=== PATIENT | male | born 1955 | race African-American/Black ===

== ENCOUNTER 2016-10-18 20:55 | Inpatient (IN) ==
[2016-10-18] MEDS ORDERED: THIAMINE INJ 100 MG, FOLIC ACID INJ 1 MG, MAGNESIUM SULF INJ 2 GM, MULTIVITAMIN INJ 10 ... IV STA (21:17)
--- NOTE | 2016-10-18 21:21 | Emergency Department Note ---
Edu Constantino Brittany, am scribing for, and in the presence of, Brannon Alex MD 21:14. Isai Constantino Charles R, MD, personally performed the services described in this documentation, ascribed by Lacie Sorensen in my presence, and it is both accurate and complete . Arrival - Arrival Chief Complaint: Alcohol Intoxication Stated Complaint: ETOH/SOB ED Nursing Triage Note: Patient to ED via EMS. EMS was called by [facility] because patient was noted to have a breatherlizer result of .35 and c/o SOB. Upon arrival to ED patient is in no distress, c/o "throat pain" and has urinated on hisself. Patient AAOx3 and smells of ETOH. He states he drank 3-4 40 ounce beers. Mode of Arrival: Stretcher Limitations: No Limitations Source: Patient, RN Notes Reviewed - History of Present Illness HPI Narrative: Mr. Carey is a 61 y/o black male presenting to the ED by EMS for further evaluation of Alcohol Intoxication. History is limited secondary to patient's intoxication. ER nurse in room states that [facility] called EMS after having patient perform breathalizer test, noting to have an ETOH level of 0.35, which per [facility] is Alcohol Poisoning limit and they could not take him into custody with a level that high. [facility] also initiated EMS due to patient complaining of SOB. Patient has had 4 40 oz. beers tonight. In room patient states he's wasted. He reports that he has had multiple falls tonight and is noted to have what appears to be dust and bits of wall plaster on the top of his head and atop his left shoulder. He states that he did hit his head during a fall tonight, but cannot remember exactly what he fell onto. No other complaint/pain. Allergies/Adverse Reactions: Allergies Allergy/AdvReac Type Severity Reaction Status Date / Time No Known Allergies Allergy Unverified 10/18/16 21:08 Review of System - Review of System 12 point system: reviewed and no additional remarkable complaints except as stated - Review of System Constitutional: Present: as per HPI. Absent: chills, fever Eyes: Absent: vision change Head/Ears/Nose/Throat: Absent: nasal drainage, sore throat Respiratory: Present: respiratory distress Cardiovascular: Absent: chest pain, palpitations Gastrointestinal: Absent: abdominal pain, nausea, vomiting, diarrhea, constipation Genitourinary male: Absent: urgency, dysuria, frequency Musculoskeletal: Absent: arm pain, back pain, leg pain, neck pain Skin: Absent: rash Neurological: Absent: headache Psychiatric: Absent: anxiety, depression Hematological/Lymphatic: Absent: easy bleeding, easy bruising Medical,Surgical,& Family Hx - Social History Smoking Status: Unknown if ever smoked Frequency of Alcohol Use: Frequently Type of Drug Use: Unknown Exam Vital Signs: Vital Signs Temperature 97.1 F L 10/18/16 20:55 Pulse Rate 68 10/18/16 20:55 Respiratory Rate 13 10/18/16 20:55 Blood Pressure 126/89 10/18/16 20:55 O2 Sat by Pulse Oximetry 98 10/18/16 20:55 - General General appearance: alert, in no apparent distress, appears intoxicated, cachectic (appears emaciated) - Head Head exam: Present: atraumatic, normocephalic. Absent: normal inspection (has plaster/dust on top of his head) - Eye Eye exam: Present: PERRL, EOMI, nystagmus (bilateral eyes) - ENT ENT exam: Present: normal exam, normal oropharynx - Neck Neck exam: Present: normal inspection, full ROM, trachea midline - Chest Chest inspection: Present: normal inspection, symmetric chest wall rise - Respiratory Respiratory exam: Present: rhonchi (bilaterally). Absent: normal lung sounds bilaterally - Cardiovascular Cardiovascular exam: Present: regular rate, normal rhythm, murmur (2/6 murmur, difficult to tell if this is diastolic or systolic). Absent: normal heart sounds - Abdominal Exam Abdominal exam: Present: soft, normal bowel sounds - Extremities Exam Extremities exam: Present: full ROM. Absent: normal inspection (dust/plaster to left shoulder) - Back Exam Back exam: Present: normal inspection - Neurological Exam Neurological exam: Present: alert, oriented X3, CN II-XII intact. Absent: motor sensory deficit - Psychiatric Psychiatric exam: Present: normal affect, normal mood - Skin Skin exam: Present: warm, dry, intact, normal color Course Course Narrative: At 2200 pt fell while attempting to get out of the bed despite the nurse's instructions not to do so. Patient appears to have fell on the right elbow and has a now has a small abrasion. We will perform an XR for further evaluation. Nurse's have assisted him back into bed and have instructed him again to not get up. - Consultations Consultation #1: Dr. Martinez will admit Time: 22:46 Results - Labs CBC & BMP: 10/18/16 21:19 10/18/16 21:19 Lab Results: I have reviewed the patients labs Labs: Laboratory Tests 10/18/16 21:19 WBC 8.4 RBC 4.52 Hgb 14.6 Hct 40.0 L MCV 88.5 MCH 32 MCHC 36.5 H RDW 16.9 Plt Count 301 MPV 8.8 L Neut % (Auto) 42.2 Lymph % (Auto) 49.1 Miner % (Auto) 7.6 Eos % (Auto) 0.2 Baso % (Auto) 0.5 Neut # (Auto) 3.6 Lymph # (Auto) 4.1 H Miner # (Auto) 0.6 Eos # (Auto) 0.0 Baso # (Auto) 0.0 Immature Gran % 0.4 Nucleated RBC % 0.6 Immature Gran # 0.03 Nucleated RBCs # 0.05 Laboratory Tests 10/18/16 21:19 INR 1.0 PT Patient/Control Mix 10.6 Laboratory Tests 10/18/16 21:19 Urine Color Straw Urine Appearance Clear Urine pH 5.0 Ur Specific [place] 1.001 Urine Protein Negative Urine Glucose (UA) Negative Urine Ketones Negative Urine Blood Negative Urine Nitrate Negative Urine Bilirubin Negative Urine Urobilinogen < 2.0 H Urine Leukocytes Negative Laboratory Tests 10/18/16 21:19 Sodium 134 L Potassium 4.4 Chloride 97 L Carbon Dioxide 24 Anion Gap 17.4 H BUN 4 L Creatinine 0.80 GFR Calculation 123 BUN/Creatinine Ratio 5.00 L Glucose 95 Calculated Osmolality 264.2 L Calcium 9.0 Magnesium 1.9 Total Bilirubin 0.60 AST 21 ALT 22 Alkaline Phosphatase 77 Total Protein 7.8 Albumin 3.5 Globulin 4.3 H Albumin/Globulin Ratio 0.8 L Lipase 304.0 Serum Alcohol 402 Laboratory Tests 10/18/16 10/18/16 21:19 21:19 Sodium 134 L Potassium 4.4 Chloride 97 L Carbon Dioxide 24 Anion Gap 17.4 H BUN 4 L Creatinine 0.80 GFR Calculation 123 BUN/Creatinine Ratio 5.00 L Glucose 95 Calculated Osmolality 264.2 L Calcium 9.0 Magnesium 1.9 Total Bilirubin 0.60 AST 21 ALT 22 Alkaline Phosphatase 77 Total Protein 7.8 Albumin 3.5 Globulin 4.3 H Albumin/Globulin Ratio 0.8 L Lipase 304.0 Urine Color Straw Urine Appearance Clear Urine pH 5.0 Ur Specific [place] 1.001 Urine Protein Negative Urine Glucose (UA) Negative Urine Ketones Negative Urine Blood Negative Urine Nitrate Negative Urine Bilirubin Negative Urine Urobilinogen < 2.0 H Urine Leukocytes Negative Critical Care Time Critical Care Time: Yes Total Critical Care Time: 60 Disposition Clinical Impression: Alcoholic intoxication, Unsteady gait, Fall, Alcohol poisoning, Abrasion/ contusion right elbow Case discussed with: patient Disposition: Still a Patient Condition: Guarded Time of Disposition: 22:47
[2016-10-18 21:41] LABS: Basophils % 0.5 % (0.0-0.8); Eosinophils % 0.2 % (0.00-10.9); Hemoglobin 14.6 GM/DL (14.0-18.0); Immature Granulocytes % 0.4 %; Immature Granulocytes Absolute 0.03 #; Lymphocytes # 4.1 10*3/uL (1.4-4.0); Lymphocytes % 49.1 % (21.2-54.2); Mean Corpuscular HGB Conc 36.5 GM/DL (32-36); Mean Corpuscular Hemoglobin 32 PG (27-34); Mean Corpuscular Volume 88.5 FL (87-102); Mean Platelet Volume 8.8 FL (9.6-12.0); Monocytes # 0.6 10*3/uL (0.11-0.8); Monocytes % 7.6 % (1.7-12.7); NRBC # 0.05 10*3/uL; Neutrophils # 3.6 10*3/uL (1.4-7.4); Neutrophils % 42.2 % (38.7-73.9); Platelet Count 301 T/CUMM (130-400); Red Blood Count 4.52 MC/CUMM (3.8-5.5); Red Cell Distribution Width 16.9 % (9.3-17.3); White Blood Count 8.4 T/CUMM (4-12)
[2016-10-18 21:52] LABS: PT Patient Result 10.6 SECS
[2016-10-18 22:19] LABS: Apearance,Urine CLEAR (Clear); Bilirubin,Urine Negative (Negative); Blood, Urine Negative (Negative); Glucose,Urine (UA) Negative (Negative); Ketones,Urine Negative (Negative); Nitrite,Urine Negative (Negative); Protein,Urine Negative; Urine Color Straw (Yellow); Urine Specific Gravity 1.001 (1.001-1.035); Urine Urobilinogen < 2.0 EU/DL (0.2-1.0)
[2016-10-18 22:28] LABS: Albumin 3.5 G/DL (3.4-5.0); Bilirubin,Total 0.6 MG/DL (0.2-1.0); Magnesium 1.9 MG/DL (1.8-2.4); Osmolality,Calculated 264.2 MOS/KG (273-304); Potassium 4.4 MMOL/L (3.5-5.1); Total Protein 7.8 G/DL (6.4-8.3)
[2016-10-18 22:38] LABS: Barbiturates Screen,Urine Negative (Negative); Benzodiazepines Screen,Urine Negative (Negative); Cannabinoid Screen,Urine Negative (Negative); Opiate Screen,Urine Negative (Negative); Phencyclidine Screen,Urine Negative (Negative)
[2016-10-18] MEDS ORDERED: ONDANSETRON 4 MG/2 ML VIAL IV PRN (23:21)
[2016-10-18] MEDS ORDERED: MORPHINE 2 MG/1 ML SYRINGE IV PRN (23:21)
[2016-10-18] MEDS ORDERED: BISACODYL 5 MG TABLET PO PRN (23:21)
[2016-10-18] MEDS ORDERED: ACETAMINOPHEN 325 MG TABLET PO PRN (23:21)
[2016-10-18] MEDS ORDERED: NICOTINE 21 MG/24 HR PATCH TRANSDERM PRN (23:21)
--- NOTE | 2016-10-18 23:26 | Hospitalist History & Physical ---
Assessment and Plan (1) Alcoholic intoxication Status: Acute Current Visit: Yes (2) Alcoholic encephalopathy Status: Acute Current Visit: Yes (3) Fall Status: Acute Current Visit: Yes (4) Smoker Status: Acute Assessment and plan: Plan: Admit for observation, give banana bag, fall precautions Benzodiazepines as needed for alcohol withdrawal/agitation Current Visit: Yes History of Present Illness Chief complaint: Brought in by [facility] due to alcohol intoxication History of present illness: Mr. Carey is a 61 yo black male brought via EMS due to alcohol intoxication. History is limited secondary to patient's intoxication. [facility] called EMS after patient had a breathalyzer test registering apparently 0.35, which per [facility] meets alcohol poisoning criteria, so they would not take him [facility], and instead had EMS take him to the emergency room. Apparently the patient also complained of shortness of breath. Patient reportedly drank four 40 oz. beers tonight. He provides little history but denies hypertension, diabetes, or any home medications. Reports smoking approximately a pack a day, he does not quantify his alcohol consumption. Otherwise he mumbles unintelligibly to questions. He tried to get out of the bed in the emergency room, and fell to the ground. CT brain negative for acute pathology, x-rays negative for acute fracture. I have been asked to admit him for further treatment of his acute intoxication and alcoholic encephalopathy. Home Medications Medication Instructions Recorded Confirmed Type Unable To Obtain [Unable to Obtain] 10/18/16 10/18/16 History Allergies Allergy/AdvReac Type Severity Reaction Status Date / Time No Known Allergies Allergy Unverified 10/18/16 21:08 Medical,Surgical,& Family Hx - Medical History Cardio: No history of: CHF, CAD, Hypertension Endocrine: No history of: Diabetes Mellitus (NIDDM) - Surgical History Surgical History: noncontributory (Unknown surgical history due to poor history from patient) - Family History Family History: noncontributory (Unknown family history due to patient is poor history from alcohol intoxication) - Social History Smoking Status: Current every day smoker Have you smoked in the last 12 months: Yes Time spent discussing smoking cessation with patient: 3 to 10 minutes Frequency of Alcohol Use: Frequently Type of Drug Use: Unknown Marital Status: Unknown Functional capacity: independent ambulation Review of systems: A 12 point review of systems is negative except as specified in the HPI Exam - Constitutional Vitals: Period Temp Pulse Resp BP Sys/Zuniga Pulse Ox Last 24 Hr 97.1 F-97.1 F 66-68 13-13 126-126/89-89 98 Exam: EXAM: CONSTITUTIONAL: Thin, non toxic, NAD HEENT: NC, AT, OP poor dentition, PIYUSH, EOMI CV: RRR no m/g/r RESP: clear B/L, no w/r/r GI: abd soft, NT, ND, +bowel sounds INTEGUMENTARY: no lesions or rash EXTREMITIES: no c/c/e NEURO: no focal deficits PSYCH: Slurred speech, drowsy but arousable due to alcohol intoxication Results - Labs CBC & BMP: 10/18/16 21:19 10/18/16 21:19 Lab Results: I have reviewed the past 24 hour labs - Diagnostic Findings Procedure: Chest x-ray: image reviewed by me, report reviewed by me, CT: image reviewed by me, report reviewed by me, X-ray: image reviewed by me, report reviewed by me
[2016-10-19] MEDS ORDERED: THIAMINE INJ 100 MG, FOLIC ACID INJ 1 MG, MULTIVITAMIN INJ 10 ML in SODIUM CHLORIDE 0.9... IV SCH (01:00)
[2016-10-19 06:33] LABS: Basophils % 0.5 % (0.0-0.8); Eosinophils # 0.1 10*3/uL (0.0-0.87); Eosinophils % 0.9 % (0.00-10.9); Hematocrit 33.7 VOL% (42.0-52.0); Hemoglobin 12.3 GM/DL (14.0-18.0); Immature Granulocytes % 0.4 %; Immature Granulocytes Absolute 0.02 #; Lymphocytes # 2.9 10*3/uL (1.4-4.0); Lymphocytes % 50.9 % (21.2-54.2); Mean Corpuscular HGB Conc 36.5 GM/DL (32-36); Mean Corpuscular Hemoglobin 32 PG (27-34); Mean Corpuscular Volume 87.3 FL (87-102); Mean Platelet Volume 8.7 FL (9.6-12.0); Monocytes # 0.7 10*3/uL (0.11-0.8); Monocytes % 12.5 % (1.7-12.7); NRBC # 0.05 10*3/uL; Neutrophils % 34.8 % (38.7-73.9); Platelet Count 276 T/CUMM (130-400); Red Blood Count 3.86 MC/CUMM (3.8-5.5); Red Cell Distribution Width 16.6 % (9.3-17.3); White Blood Count 5.7 T/CUMM (4-12)
[2016-10-19 07:07] LABS: Band Neutrophils 1 % (0-10); Eosinophils 3 % (0-10); Giant Platelets Few; Hypochromasia 1+; Lymphocytes 44 % (20-55); Platelet Estimate Adequate; Segmented Neutrophils 48 % (50-85); Target Cells Few; Total Cells Counted 100
[2016-10-19 07:15] LABS: Albumin 2.6 G/DL (3.4-5.0); Bilirubin,Total 0.7 MG/DL (0.2-1.0); Osmolality,Calculated 277.3 MOS/KG (273-304); Potassium 3.9 MMOL/L (3.5-5.1); Total Protein 5.9 G/DL (6.4-8.3)
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
--- NOTE | 2016-10-19 09:52 | CT Report ---
CT head/brain wo con INDICATION: Head injury Headache The total DLP is 1607 mGy*cm. COMPARISON: None available Technique: Serial axial tomographic images of the brain were obtained without the use of intravenous contrast. Dose reduction: This CT exam was performed using one or more of the following dose reduction techniques: Automated exposure control, automated adjustment of the mA and/or KV according to patient size, or use of iterative reconstruction technique. Findings: No definite acute displaced left depressed skull fractures are visualized. No definite scalp injury/hematoma is visualized. Mild generalized atrophy is noted with mild prominence of the sulci and cortical volume loss. Periventricular white matter hypodensity changes are noted bilaterally which do not demonstrate mass effect and are nonspecific but favored to represent sequela of chronic microvascular ischemia. There is no evidence of vascular territory infarct or acute intracranial hemorrhage. The adkins-white matter differentiation is generally maintained. There is no hydrocephalus. The basilar cisterns are patent. The visualized paranasal sinuses, mastoid air cells and middle ear cavities are predominantly clear. The included orbits and their contents appear within normal limits. IMPRESSION: No acute intracranial abnormality. Generalized atrophy and findings suggestive of sequela of chronic microvascular ischemia. PROCEDURE INTERPRETED AT [facility] DEPARTMENT OF RADIOLOGY Final Report Signed by: Meño Madden
[2016-10-19] MEDS: PANTOPRAZOLE 40 MG TABLET PO SCH (10:00)
--- NOTE | 2016-10-19 10:56 | Hospitalist Progress Note ---
Assessment and Plan - Time spent with patient Time spent with patient: Less than 30 minutes (1) Alcoholic intoxication Status: Acute Assessment and plan: Continuing IV fluids, multivitamin and thiamine. Will start his diet and increase his activity with plans for discharge later this afternoon. He is encouraged follow-up with primary care physician and seek alcohol rehab. Current Visit: Yes (2) Alcoholic encephalopathy Status: Resolved Assessment and plan: Patient is now awake alert and oriented. We will plan to discharge later this afternoon. Current Visit: Yes Hospitalist: Subjective Interval history: Patient examined and chart reviewed. This morning he is awake alert and oriented has no complaints of pain. He states he did drink heavily last evening. He has no interest in alcohol rehab. Exam - Constitutional Vitals: Period Temp Pulse Resp BP Sys/Zuniga Pulse Ox Last 24 Hr 96.6 F-97.2 F 58-68 13-23 90-126/58-89 98-99 General appearance: no acute distress - Head Head exam: Present: normocephalic, atraumatic - Eye Eye exam: Present: EOMI Pupils: Present: PIYUSH - ENT ENT exam: Present: normal exam - Neck Neck exam: Present: normal inspection - Respiratory Respiratory exam: Present: clear to auscultation bilaterally - Cardiovascular Cardiovascular exam: Present: regular rate and rhythm - GI/Abdominal GI/Abdominal exam: Present: normal bowel sounds, soft. Absent: mass, tenderness - Extremities Exam Extremities exam: Absent: calf tenderness, edema - Back Exam Back exam: Present: normal inspection - Neurological Exam Neurological exam: Present: alert, oriented X3, CN II-XII intact. Absent: motor sensory deficit - Psychiatric Psychiatric exam: Present: normal affect, normal mood. Absent: agitated, anxious - Skin Skin exam: Present: warm, dry. Absent: erythema, rash Results - Labs CBC & BMP: 10/19/16 06:04 10/19/16 06:04 Lab Results: I have reviewed the past 24 hour labs - Diagnostic Findings Procedure: Chest x-ray: report reviewed by me, CT: report reviewed by me, X-ray : report reviewed by me Quality Measures - Stroke Symptom Onset Unknown: No
--- NOTE | 2016-10-19 14:28 | Discharge Summary ---
Hospital Course - Hospital Course Hospital Course: 61 yo BM admitted with alcohol intoxication and confusion. He had CT Head and cspine without acute changes. He was hydrated, received thiamine and MVI, and slept well. On 10/19/16, he was awake without complaints of cp, sob, abd pain, n/v , d/c, extremity pain, VELAZQUEZ. He tolerated his diet, was hemodynamically stable and was ready for DC. He had no desire to pursue alcohol rehab. - Time spent with patient Time with patient DS: Less than 30 minutes Diagnosis - Discharge Diagnosis (1) Alcoholic intoxication Status: Acute (2) Alcoholic encephalopathy Status: Resolved Discharge Plan - Discharge Data Disposition: Disch To Home/Self Care Condition at Discharge: Stable Discharge Diet: advance to your usual diet Activity: resume usual activities as tolerated Hygiene: no restrictions Weight Bearing at Discharge: full weight bearing - Discharge Medications No Action Unable To Obtain [Unable to Obtain] - Follow Up or Referral Follow Up: PCP, Clinic [Other] - 5 Days - Forms/Instructions Additional Discharge Instructions: Refer to AA Exam - Constitutional Vitals: Period Temp Pulse Resp BP Sys/Zuniga Pulse Ox Last 24 Hr 96.6 F-98.8 F 58-68 13-23 90-126/58-89 98-99 General appearance: no acute distress - Head Head exam: Present: normocephalic, atraumatic - Eye Eye exam: Present: EOMI Pupils: Present: PIYUSH - ENT ENT exam: Present: normal exam - Neck Neck exam: Present: normal inspection - Respiratory Respiratory exam: Present: clear to auscultation bilaterally - Cardiovascular Cardiovascular exam: Present: regular rate and rhythm - GI/Abdominal GI/Abdominal exam: Present: normal bowel sounds, soft (/), other (NT without mass) - Extremities Exam Extremities exam: Present: normal capillary refill, full ROM, other (No CCE) - Back Exam Back exam: Present: normal inspection - Neurological Exam Neurological exam: Present: alert, oriented X3, CN II-XII intact, other (No focal motor deficits) - Psychiatric Psychiatric exam: Present: normal affect, normal mood - Skin Skin exam: Present: warm, dry Discharge Results Procedures and tests throughout hospitalization: Pending Orders 10/18/16 21:19 XR chest 1V portable Stat 10/18/16 22:04 XR elbow 3V RT Stat Labs on day of discharge: Labs from last 24 hours 10/19/16 10/19/16 10/19/16 06:04 06:04 00:38 WBC 5.7 D RBC 3.86 Hgb 12.3 L D Hct 33.7 L MCV 87.3 MCH 32 MCHC 36.5 H RDW 16.6 Plt Count 276 MPV 8.7 L Neut % (Auto) 34.8 L Lymph % (Auto) 50.9 [place] % (Auto) 12.5 Eos % (Auto) 0.9 Baso % (Auto) 0.5 Neut # (Auto) 2.0 Lymph # (Auto) 2.9 [place] # (Auto) 0.7 Eos # (Auto) 0.1 Baso # (Auto) 0.0 Total Counted 100 Immature Gran % 0.4 Nucleated RBC % 0.9 Immature Gran # 0.02 Segmented Neutrophils 48 L Band Neutrophils 1 Lymphocytes 44 Monocytes 4 Eosinophils 3 Nucleated RBCs # 0.05 Platelet Estimate Adequate Giant Platelets Few Hypochromasia 1+ Target Cells Few INR PT Patient/Control Mix Sodium 141 Potassium 3.9 Chloride 108 H Carbon Dioxide 24 Anion Gap 12.9 BUN 4 L Creatinine 0.70 GFR Calculation 123 BUN/Creatinine Ratio 5.00 L Glucose 94 POC Glucose 73 L Calculated Osmolality 277.3 Calcium 8.0 L Magnesium Total Bilirubin 0.70 AST 18 ALT 15 L Alkaline Phosphatase 58 Total Protein 5.9 L Albumin 2.6 L Globulin 3.3 Albumin/Globulin Ratio 0.7 L Lipase Urine Color Urine Appearance Urine pH Ur Specific [place] Urine Protein Urine Glucose (UA) Urine Ketones Urine Blood Urine Nitrate Urine Bilirubin Urine Urobilinogen Urine Leukocytes Ur Culture Indicated? Urine Opiates Screen Ur Barbiturates Screen Ur Phencyclidine Scrn U Amphetamine/Methamph U Benzodiazepines Scrn U Cocaine Metab Screen U Cannabinoids Screen Serum Alcohol 10/18/16 10/18/16 10/18/16 21:19 21:19 21:19 WBC RBC Hgb Hct MCV MCH MCHC RDW Plt Count MPV Neut % (Auto) Lymph % (Auto) [place] % (Auto) Eos % (Auto) Baso % (Auto) Neut # (Auto) Lymph # (Auto) [place] # (Auto) Eos # (Auto) Baso # (Auto) Total Counted Immature Gran % Nucleated RBC % Immature Gran # Segmented Neutrophils Band Neutrophils Lymphocytes Monocytes Eosinophils Nucleated RBCs # Platelet Estimate Giant Platelets Hypochromasia Target Cells INR PT Patient/Control Mix Sodium 134 L Potassium 4.4 Chloride 97 L Carbon Dioxide 24 Anion Gap 17.4 H BUN 4 L Creatinine 0.80 GFR Calculation 123 BUN/Creatinine Ratio 5.00 L Glucose 95 POC Glucose Calculated Osmolality 264.2 L Calcium 9.0 Magnesium 1.9 Total Bilirubin 0.60 AST 21 ALT 22 Alkaline Phosphatase 77 Total Protein 7.8 Albumin 3.5 Globulin 4.3 H Albumin/Globulin Ratio 0.8 L Lipase 304.0 Urine Color Straw Urine Appearance Clear Urine pH 5.0 Ur Specific [place] 1.001 Urine Protein Negative Urine Glucose (UA) Negative Urine Ketones Negative Urine Blood Negative Urine Nitrate Negative Urine Bilirubin Negative Urine Urobilinogen < 2.0 H Urine Leukocytes Negative Ur Culture Indicated? Not indicated Urine Opiates Screen Negative Ur Barbiturates Screen Negative Ur Phencyclidine Scrn Negative U Amphetamine/Methamph Negative U Benzodiazepines Scrn Negative U Cocaine Metab Screen Negative U Cannabinoids Screen Negative Serum Alcohol 402 10/18/16 10/18/16 21:19 21:19 WBC 8.4 RBC 4.52 Hgb 14.6 Hct 40.0 L MCV 88.5 MCH 32 MCHC 36.5 H RDW 16.9 Plt Count 301 MPV 8.8 L Neut % (Auto) 42.2 Lymph % (Auto) 49.1 [place] % (Auto) 7.6 Eos % (Auto) 0.2 Baso % (Auto) 0.5 Neut # (Auto) 3.6 Lymph # (Auto) 4.1 H [place] # (Auto) 0.6 Eos # (Auto) 0.0 Baso # (Auto) 0.0 Total Counted Immature Gran % 0.4 Nucleated RBC % 0.6 Immature Gran # 0.03 Segmented Neutrophils Band Neutrophils Lymphocytes Monocytes Eosinophils Nucleated RBCs # 0.05 Platelet Estimate Giant Platelets Hypochromasia Target Cells INR 1.0 PT Patient/Control Mix 10.6 Sodium Potassium Chloride Carbon Dioxide Anion Gap BUN Creatinine GFR Calculation BUN/Creatinine Ratio Glucose POC Glucose Calculated Osmolality Calcium Magnesium Total Bilirubin AST ALT Alkaline Phosphatase Total Protein Albumin Globulin Albumin/Globulin Ratio Lipase Urine Color Urine Appearance Urine pH Ur Specific [place] Urine Protein Urine Glucose (UA) Urine Ketones Urine Blood Urine Nitrate Urine Bilirubin Urine Urobilinogen Urine Leukocytes Ur Culture Indicated? Urine Opiates Screen Ur Barbiturates Screen Ur Phencyclidine Scrn U Amphetamine/Methamph U Benzodiazepines Scrn U Cocaine Metab Screen U Cannabinoids Screen Serum Alcohol - Imaging and Cardiology Procedure: Chest x-ray: report reviewed by me, CT: report reviewed by me, X-ray : report reviewed by me DS: Provider Date of admission: 10/18/16 23:21 Primary care physician: . No PCP Attending physician on admission: Miguel Martinez DO Discharging clinician: Sravanthi Benz Expected date of discharge: 10/19/16
--- NOTE | 2016-10-19 16:13 | XRay Report ---
XR elbow 3V RT Clinical Information: Fall, abrasion, Pain Comparison: None Findings: Elbow joint appears intact. There is no evidence of acute fracture or dislocation. There is no joint effusion. No definite focal osseous or soft tissue lesion is identified. Impression: No acute findings. PROCEDURE INTERPRETED AT [facility] DEPARTMENT OF RADIOLOGY Final Report Signed by: Meño Madden
--- NOTE | 2016-10-19 16:22 | XRay Report ---
Exam: XR chest 1V portable Indication: Shortness of breath Comparison study: 01/18/2011 Findings: Lungs are hyperexpanded with diffuse interstitial scarring changes which appear similar prior. Patchy right basilar airspace opacities seen previously have resolved. However, there are patchy right middle lobe opacities which are nonspecific. There is no pneumothorax. Lucent lesion measuring 4.2 cm in the right lung apex may represent a prominent emphysematous bleb but is otherwise indeterminate. Impression: Suggestion of patchy opacities within the right middle and/or lower lobes may represent infectious/inflammatory infiltrate superimposed on chronic interstitial scarring changes. Lucent lesion measuring 4.2 cm and the right apex may represent an emphysematous bleb. A cavitary lesion is not excluded. A follow-up chest radiograph after appropriate therapy is recommended to document stability/resolution. Alternatively, consider CT imaging of the chest for further evaluation if clinically indicated. PROCEDURE INTERPRETED AT [facility] DEPARTMENT OF RADIOLOGY Final Report Signed by: Meño Madden
[2016-10-19] MEDS: SODIUM CHLORIDE 0.45% 1,000 ML IV SCH (17:38)
--- NOTE | 2016-10-19 17:45 | CT Report ---
CT chest w con Technique: Axial CT imaging of the chest was performed following administration of 100 cc of Omnipaque 350. No immediate complication from administration of contrast. Coronal and sagittal reformatted images were additionally created and submitted for review. Dose reduction: This CT exam was performed using one or more of the following dose reduction techniques: Automated exposure control, automated adjustment of the mA and/or KV according to patient size, or use of iterative reconstruction technique. Total DLP: 144.6 mGy*cm Clinical history: Possible cavitary lesion right upper lobe Comparison: Chest radiograph dated same day and cross-sectional imaging available for comparison Findings: CHEST: Mediastinum/vessels/lymph nodes: Heart and great vessels appear unremarkable. There is no evidence of pericardial effusion. The aorta and pulmonary vessels appear widely patent. Several mildly prominent but not significantly enlarged mediastinal lymph nodes are noted, which may be reactive. There is no axillary or subclavicular adenopathy. Partially calcified right hilar lymph node may represent evidence of prior granulomatous disease. Lungs: In the right lung apex, there is a thick-walled cystic/cavitary lesion measuring up to 4.4 cm maximum craniocaudal dimension. In the axial plane, this lesion measures approximately 3.6 x 2.7 cm with central septation suggested. This extends toward the right upper lobe bronchi and contacts the pleura posteriorly. On axial image 39, there is separate suggestion of soft tissue filling a small subsegmental bronchus, which is of uncertain significance but may represent a neoplastic or infectious process versus polyp. Central airways are otherwise patent. Minimal bronchiectasis and interlobular lobular septal thickening changes are noted within the right lung base. There are also punctate areas of ground glass opacity within the lingula and periphery of the left lower lobe which are nonspecific but may represent endobronchial spread of infection. There is no pneumothorax. There is no significant pleural effusion. Minimal emphysematous changes are otherwise identified. Thyroid: Thyroid gland appears within normal limits. No acute abnormality is identified within the visualized upper abdomen. Multiple calcific densities are noted within the pancreatic parenchyma with central ductal dilatation, compatible with findings of chronic pancreatitis. BONES: No acute or suspicious appearing osseous abnormalities are identified. Impression: Thick-walled cavitary lesion with central septations in the right lung apex. This is nonspecific but an infectious process is favored. Tuberculosis type infection is not excluded. Neoplasm is also not excluded but considered less likely. Punctate ground glass opacities in the lingula and left lung base may represent endobronchial spread of infection. Findings compatible with changes of chronic pancreatitis partially imaged in the upper abdomen. Critical findings discussed with the charge nurse, Nevaeh Robles RN, via telephone at 5:30 PM on the day of examination. PROCEDURE INTERPRETED AT [facility] DEPARTMENT OF RADIOLOGY Final Report Signed by: Meño Madden
[2016-10-19] MEDS ORDERED: LORazepam 2 MG/1 ML VIAL IV PRN (17:49)
--- NOTE | 2016-10-19 18:13 | Event Note ---
CT Chest noted cavitary lung lesion. Will transfer to negative pressure room, consult pulmonary, apply PPD, and attempt to collect sputums for appropriate studies.
[2016-10-19] MEDS ORDERED: TUBERCULIN SKIN TEST 0.1 ML SYRINGE INTRADERM ONE (18:45)
[2016-10-19] MEDS: CLORAZEPATE 3.75 MG TABLET PO SCH (20:56)
--- NOTE | 2016-10-20 07:25 | Pulmonology Consult Note ---
History of Present Illness Chief complaint: Abnormal chest x-ray. Alcoholic. History of present illness: Mr. Carey is a 61 year old male whom I been asked to see in pulmonary consultation. This patient is an alcoholic. He was hospitalized here and was ready for discharge, but before the time of discharge he was noted that his chest x-ray was abnormal. Pulmonary tuberculosis was thought to be a possibility. I have interviewed this patient. He is not interested in given a good review of systems. He does admit to occasional cough. I cannot get a history of chest pain or reflux. His review of systems is otherwise negative because it is unreliable. Allergies. None Home medicines. See below Hospital medicines. See below. Past history. Smoker. Alcoholic. Family history. Noncontributory because the patient will not give an adequate history. Social history. Smokes daily. Uses alcohol frequently. I have reviewed the patient's chest x-ray and CT scan of the chest. He has a septated slightly thick wall cavity with no air-fluid levels in the apex of the right lung. He also has an infiltrate versus a cavity in the distal lingula. There is also an infiltrate with a cavity containing no air-fluid levels at the base of the right lung. He has underlying emphysema. Microbiology. No results. Lab. Electrolytes are normal. Glucoses are normal. Liver function tests are normal. Protein and albumin are low with normal globulin. H&H is 12.3/33.7. MCH is increased and red blood cell distribution width is increased. Platelets are 276,000. White count is 5751 612-1/2 lymphocytes. Toxicology showed a serum alcohol level of 402. Physical exam. Vital signs. See below. Patient's had a single temperature to 99. Psychiatric. Arousable. Cooperative. Neurologic. Cranial nerves are intact. Patient moves all 4 extremities. I did not see any definite asterixis. Face. Lips and tongue are normal. Neck. No meningismus. No masses. Thyroid was not palpated. Lymphatics. No submandibular cervical supraclavicular or epitrochlear adenopathy. Chest. Mild large airway congestion with hyperinflation and prolonged incomplete expiration Heart. No gallop. Abdomen. Nontender. Bowel sounds are present Lower extremities. No obvious evidence of deep venous thrombophlebitis. Skin of the face and hand showed no cancerous infectious lesions. No other areas of skin were examined. Venous exam of the neck upper and lower extremities are normal. Arterial exam revealed bilateral decreased carotid artery upstrokes. Upper extremity pulses are palpable lower extremity pulses were nonpalpable no evidence of lower extremity ischemia The remainder the physical exam is negative Impression. 1. Alcoholism 2. Tobacco abuse 3. Septated slightly thick wall cavity at the apex of the right lung. No air- fluid level. Possible cavity associated with infiltrate posterior right lower lung. Infiltrate in the distal lingula. In the face of the patient's alcoholism I suspect that he has had episodes of gastroesophageal reflux and/or vomiting with aspiration. He is a most likely bacterial but I agree with looking for evidence of acid-fast bacilli. 4. Anemia 5. Hypoproteinemia and hypoalbuminemia Plan. 1. I am starting this patient on IV penicillin and IV Levaquin. 2. Will collect sputum for Gram stain culture and sensitivity and sputum for TB. QuantiFERON test is pending. TB skin test is pending and this should be of the same significance as the QuantiFERON test. Both will basically indicate a past history of TB exposure and infection some time in the past. 3. Most likely we are dealing with an alcoholic with recurrent aspiration and bacterial infections.. 4. If we decide to put this patient on anti-TB medicines we can consult the [facility] to oversee this and to follow the patient. Course can be done unless they have lost ther government funding. Home Medications Medication Instructions Recorded Confirmed Type Unable To Obtain [Unable to Obtain] 10/18/16 10/18/16 History Allergies Allergy/AdvReac Type Severity Reaction Status Date / Time No Known Allergies Allergy Unverified 10/18/16 21:08 Exam (Pulmonay) H&P - Constitutional Vitals: Period Temp Pulse Resp BP Sys/Zuniga Pulse Ox Last 24 Hr 98 F-99 F 57-74 14-20 92-141/59-104 99-100 Medical,Surgical,& Family Hx - Medical History Cardio: No history of: CHF, CAD, Hypertension Neurology: No history of: Brain Aneurysm, Cerebral Hemorrhage, Cerebrovascular Accident , Cerebral Palsy, Dementia, Migraine, Multiple Sclerosis, Parkinson's Disease, Peripheral Neuropathy, Seizures, TIA, Vertigo, Neurologocal Cancer Endocrine: No history of: Diabetes Mellitus (NIDDM) - Surgical History Neurologic Surgeries: Patient denies: Brain Aneurysm, Cerebral Hemorrhage - Social History Smoking Status: Current every day smoker Frequency of Alcohol Use: Frequently Type of Drug Use: Unknown Results - Labs CBC & BMP: 10/19/16 06:04 10/19/16 06:04 Quality Measures - Stroke Symptom Onset Unknown: No Specialty Discharge - Follow Up or Referrals Follow up with: PCP, Clinic [Other] - 5 Days
[2016-10-20] MEDS: SODIUM CHLORIDE 0.45% 1,000 ML IV SCH ×2 (08:06→22:30)
[2016-10-20] MEDS: PANTOPRAZOLE 40 MG TABLET PO SCH (08:34)
[2016-10-20] MEDS: CLORAZEPATE 3.75 MG TABLET PO SCH ×3 (08:34→21:15)
[2016-10-20] MEDS: PENICILLIN G POTASSIUM INJ 2,000,000 UNIT in SODIUM CHLORIDE 0.9% 100 ML IV SCH ×3 (08:34→21:15)
[2016-10-20] MEDS: LEVOFLOXACIN INJ 500 MG in PREMIX 1 EACH IV SCH (08:34)
--- NOTE | 2016-10-20 10:16 | Hospitalist Progress Note ---
Assessment and Plan (1) Abnormal screening chest x-ray for tuberculosis Status: Acute Assessment and plan: The patient has chest x-ray with abnormalities in the right apex. Dr. Ochoa believes this is most likely due to aspiration. The patient has TB screening studies sent and he will continue negative pressure until the screening studies have returned a result. Current Visit: Yes Hospitalist: Subjective Interval history: The patient is resting quietly in negative pressure room 105. The patient is not feeling short of breath. Patient is tolerating regular diet. I coordinated care with Dr. Ochoa and with Dr. Preston. Exam - Constitutional Vitals: Period Temp Pulse Resp BP Sys/Zuniga Pulse Ox Last 24 Hr 98 F-99 F 57-74 14-20 92-145/59-104 99-100 Exam: Constitutional System: No distress. No tremulousness. Head: Normocephalic, atraumatic. Ears, Nose and Throat System: No evidence of Otitis or Mastoiditis. No epistaxis or discharge Eyes System: Pupils equal, round, and reactive. Extraocular muscles intact. Neck: Supple, without adenopathy, No jugular venous distention. No thyromegaly , neck mass, or prior surgery apparent. Respiratory System: Chest clear to auscultation. Cardiovascular System: Heart with regular rate and rhythm. No murmur. Results - Labs CBC & BMP: 10/19/16 06:04 10/19/16 06:04 Lab Results: I have reviewed the past 24 hour labs Quality Measures - Stroke Symptom Onset Unknown: No Specialty Discharge - Follow Up or Referrals Follow up with: PCP, Clinic [Other] - 5 Days
[2016-10-21] MEDS: PENICILLIN G POTASSIUM INJ 2,000,000 UNIT in SODIUM CHLORIDE 0.9% 100 ML IV SCH ×4 (05:30→21:39)
[2016-10-21] MEDS: LEVOFLOXACIN INJ 500 MG in PREMIX 1 EACH IV SCH (08:09)
[2016-10-21] MEDS: CLORAZEPATE 3.75 MG TABLET PO SCH ×3 (09:04→21:40)
[2016-10-21] MEDS: PANTOPRAZOLE 40 MG TABLET PO SCH (09:04)
--- NOTE | 2016-10-21 10:39 | Pulmonology Progress Note ---
Pulmonary - PN: Subj Interval history: This is a 61-year-old alcoholic who I saw in pulmonary consultation on 2016. Patient has an abnormal chest x-ray and the request was to rule out pulmonary tuberculosis. My impressions were. 1. Alcoholism 2. Tobacco abuse 3. Septated slightly thick wall cavity at the apex of the right lung. No air- fluid level. Possible cavity associated with infiltrate posterior right lower lung. Infiltrate in the distal lingula. In the face of the patient's alcoholism I suspect that he has had episodes of gastroesophageal reflux and/or vomiting with aspiration. He is a most likely bacterial but I agree with looking for evidence of acid-fast bacilli. 4. Anemia 5. Hypoproteinemia and hypoalbuminemia 10/21/2016. Sputum Gram stain is showing gram-positive cocci and a few gram- negative rods. Patient has less than 25 white blood cells per high-power field. Sputum for TB are pending. TB skin test is been placed and so far is negative. QuantiFERON test is pending. If either 1 of these test are positive and means the patient had a infection for TB sometime in his lifetime. If the tests are negative and probably means she has never had a TB infection but he could have energy secondary to his chronic alcoholism. We will see what his sputum shows. As an alcoholic patient could have multiple episodes of aspiration causing the same chest x-ray changes. He has been stable overnight. Physical exam. Vital signs. See below. Highest temp is been 98.6. Psychiatric. Oriented 3. Not very cooperative. Neurologic. Cranial nerves are intact. Long track motor functions intact. No asterixis. Face. Symmetrical Neck. Symmetrical no meningismus Lymphatics. No submandibular cervical supraclavicular adenopathy Chest. Loose large airway congestion. No chest wall tenderness Heart. No gallop Abdomen nondistended nontender. Positive bowel sounds Extremities. Nothing to suggest deep venous thrombophlebitis The remainder the physical exam is negative Plan. 10/20/2016. 1. I am starting this patient on IV penicillin and IV Levaquin. 2. Will collect sputum for Gram stain culture and sensitivity and sputum for TB. QuantiFERON test is pending. TB skin test is pending and this should be of the same significance as the QuantiFERON test. Both will basically indicate a past history of TB exposure and infection some time in the past. 3. Most likely we are dealing with an alcoholic with recurrent aspiration and bacterial infections.. 4. If we decide to put this patient on anti-TB medicines we can consult the [facility] to oversee this and to follow the patient. Course can be done unless they have lost ther government funding. 10/21/2016. 1. See today's note above. 2. Check sputum's when available 3. Continue antibiotics 4. Follow-up chest x-ray Exam (Progress Note) - Constitutional Vitals: Period Temp Pulse Resp BP Sys/Zuniga Pulse Ox Last 24 Hr 97 F-98.6 F 44-56 13-16 124-152/70-97 98-100 Results - Labs CBC & BMP: 10/19/16 06:04 10/19/16 06:04 Specialty Discharge - Follow Up or Referrals Follow up with: PCP, Clinic [Other] - 5 Days
[2016-10-21] MEDS: SODIUM CHLORIDE 0.45% 1,000 ML IV SCH (11:32)
--- NOTE | 2016-10-21 11:57 | Hospitalist Progress Note ---
Assessment and Plan (1) Abnormal screening chest x-ray for tuberculosis Status: Acute Assessment and plan: The patient has chest x-ray with abnormalities in the right apex. Dr. Ochoa believes this is most likely due to aspiration. The patient has TB screening studies sent and he will continue negative pressure until the screening studies have returned a result. Current Visit: Yes Hospitalist: Subjective Interval history: The patient was admitted to the hospital with acute alcohol intoxication. The patient was found to have abnormal chest x-ray in the apex with question of tuberculosis. There is no evidence of tuberculosis so far on sputum and skin testing. The patient remains in isolation until the electrical controls designer has determined that he is not at risk of communicating tuberculosis. The patient is being treated for aspiration pneumonia. Exam - Constitutional Vitals: Period Temp Pulse Resp BP Sys/Zuniga Pulse Ox Last 24 Hr 97 F-98.6 F 44-56 13-16 124-152/70-97 98-100 Exam: Constitutional System: No distress. No tremulousness. Head: Normocephalic, atraumatic. Ears, Nose and Throat System: No evidence of Otitis or Mastoiditis. No epistaxis or discharge Eyes System: Pupils equal, round, and reactive. Extraocular muscles intact. Neck: Supple, without adenopathy, No jugular venous distention. No thyromegaly , neck mass, or prior surgery apparent. Respiratory System: Chest clear to auscultation. Cardiovascular System: Heart with regular rate and rhythm. No murmur. Results - Labs CBC & BMP: 10/19/16 06:04 10/19/16 06:04 Lab Results: I have reviewed the past 24 hour labs Quality Measures - Stroke Symptom Onset Unknown: No Specialty Discharge - Follow Up or Referrals Follow up with: PCP, Clinic [Other] - 5 Days
[2016-10-22] MEDS: PENICILLIN G POTASSIUM INJ 2,000,000 UNIT in SODIUM CHLORIDE 0.9% 100 ML IV SCH ×4 (02:12→20:19)
[2016-10-22] MEDS: SODIUM CHLORIDE 0.45% 1,000 ML IV SCH ×2 (04:31→20:20)
--- NOTE | 2016-10-22 07:20 | XRay Report ---
Referring Physician: Spencer Herr Exam: XR chest 1V portable Date: October 22, 2016 at 3:00 AM Reason: Cough Comparison: Chest one view portable October 18, 2016, CT chest October 19, 2016 Findings: The cardiac silhouette is upper normal in size. A thick-walled cavitary lesion is again seen within the right lung apex. This could represent an infectious or neoplastic process. There are also minimal scattered opacities within the remaining lungs, mainly at the lung bases. This could represent atelectasis, scarring and/or pneumonia. There is also bronchiectasis at the right lung base. No pneumothorax is identified. The osseous structures appear stable. Impression: There has been no significant change. PROCEDURE INTERPRETED AT [facility] DEPARTMENT OF RADIOLOGY Final Report Signed by: Dr. Ray Saavedra
[2016-10-22] MEDS: LEVOFLOXACIN INJ 500 MG in PREMIX 1 EACH IV SCH (07:57)
--- NOTE | 2016-10-22 08:10 | Hospitalist Progress Note ---
Assessment and Plan (1) Bacterial pneumonia Status: Acute Assessment and plan: Cavitary lesion is likely 2/2 aspiration. TB work-up thus far is negative for evidence of TB infection. GNR isolated on sputum culture. Awaiting finalization of cx results. Continue with Levo and Pen G for now. 3rd sputum for AFB is pending as well as QTB. Obtain HIV screening today. Health Dept. is aware of this patient. Current Visit: Yes (2) Alcoholic intoxication Status: Resolved Assessment and plan: Resolved. Patient is AAO x3. Continue to monitor for withdrawals. No signs nor symptoms of such currently. Current Visit: Yes (3) Abnormal screening chest x-ray for tuberculosis Status: Acute Assessment and plan: As per above. Awaiting 3rd sputum for AFB and QTB. Current Visit: Yes Hospitalist: Subjective Interval history: Patient initially admitted with alcohol intoxication and noted to have a right apical thick walled cavitary lesion. Patient placed in ICU for negative pressure isolation (airborne precautions) to r/o TB. 2/3 Sputum samples for AFB are smear negative. TST with 0mm induration. QTB pending. Patient reports feeling well. No cough nor shortness of breath. No chest pain. Sitting up in bed eating breakfast without difficulty. Currently on Levoflxacin and Pen G. Sputum culture with GNR isolated. Identification and susceptibilities pending. Exam - Constitutional Vitals: Period Temp Pulse Resp BP Sys/Zuniga Pulse Ox Last 24 Hr 97 F-98.6 F 44-78 10-18 113-147/64-86 100-100 General appearance: no acute distress - Head Head exam: Present: normal inspection, normocephalic, atraumatic - Eye Eye exam: Present: EOMI - Neck Neck exam: Present: normal inspection - Respiratory Respiratory exam: Present: other (Course breath sounds bilaterally without wheezes. Occassional rales over the right upper airway) - Cardiovascular Cardiovascular exam: Present: regular rate and rhythm. Absent: JVD, systolic murmur - GI/Abdominal GI/Abdominal exam: Present: normal bowel sounds, soft. Absent: distended, tenderness - Neurological Exam Neurological exam: Present: alert, oriented X3, CN II-XII intact - Psychiatric Psychiatric exam: Present: normal affect, normal mood - Skin Skin exam: Present: normal color, warm, dry Results - Labs CBC & BMP: 10/19/16 06:04 10/19/16 06:04 Quality Measures - Stroke Symptom Onset Unknown: No Specialty Discharge - Follow Up or Referrals Follow up with: PCP, Clinic [Other] - 5 Days
[2016-10-22] MEDS: CLORAZEPATE 3.75 MG TABLET PO SCH ×3 (08:58→20:19)
[2016-10-22] MEDS: PANTOPRAZOLE 40 MG TABLET PO SCH (08:58)
--- NOTE | 2016-10-22 09:34 | Physician Query Form ---
CLICK EDIT DOCUMENT TO SELECT QUERY ANSWER --> OK --> SIGN Irene Tejada RN Clinical Conveyor Mechanic W) [phone] (f) [phone] [email or web address]: Make your selection(s) from the choices in EACH section by typing an "x" and enter comments in the comment section. Please use your independent medical judgment in providing your response. This request does not imply that any particular answer is desired or expected. CLINICAL INDICATORS: (Providers should not edit this section) Height: 6ft 2in Weight: 124 lbs History Faculty Member BMI: 15.9 Nutritional supplements: Breeze with all meals Bait Man notes: Loss of subcutaneous fat. Loss of lean body mass. Loss of muscle mass Other clinical notes: cachectic (appears emaciated) Based on the above, which following choice most accurately represents the patient's nutritional status? (x) Malnutrition ( ) mild ( ) moderate (x) severe ( ) Protein calorie malnutrition ( ) mild ( ) moderate ( ) severe ( ) Emaciation due to malnutrition ( ) Nutritional marasmus ( ) Cachexia ( ) Underweight ( ) No nutritional deficiency ( ) Other, please specify: ( ) Clinically unable to determine Mild Malnutrition (BMI < 18.5, % Normal Body Weight 85-95%) Moderate Malnutrition (BMI < 17, % Normal Body Weight 75-85%) Severe Malnutrition (BMI < 16, % Normal Body Weight < 75%) Source: Marva COMMENTS: PLEASE ALSO DOCUMENT RESPONSE IN PROGRESS NOTES AND/OR DISCHARGE SUMMARY Use of terms such as suspected, likely, or probable (associated with a specific diagnosis that is being evaluated, monitored, or treated as if it exists) are acceptable and can be restated in the discharge summary if not ruled out. MTDD
[2016-10-22 10:02] LABS: HIV Antigen/Antibody Result Nonreactive (Nonreactive)
--- NOTE | 2016-10-22 10:50 | Pulmonology Progress Note ---
Pulmonary - PN: Subj Interval history: This is a 61-year-old alcoholic who I saw in pulmonary consultation on 2016. Patient has an abnormal chest x-ray and the request was to rule out pulmonary tuberculosis. My impressions were. 1. Alcoholism 2. Tobacco abuse 3. Septated slightly thick wall cavity at the apex of the right lung. No air- fluid level. Possible cavity associated with infiltrate posterior right lower lung. Infiltrate in the distal lingula. In the face of the patient's alcoholism I suspect that he has had episodes of gastroesophageal reflux and/or vomiting with aspiration. He is a most likely bacterial but I agree with looking for evidence of acid-fast bacilli. 4. Anemia 5. Hypoproteinemia and hypoalbuminemia 10/21/2016. Sputum Gram stain is showing gram-positive cocci and a few gram- negative rods. Patient has less than 25 white blood cells per high-power field. Sputum for TB are pending. TB skin test is been placed and so far is negative. QuantiFERON test is pending. If either 1 of these test are positive and means the patient had a infection for TB sometime in his lifetime. If the tests are negative and probably means she has never had a TB infection but he could have energy secondary to his chronic alcoholism. We will see what his sputum shows. As an alcoholic patient could have multiple episodes of aspiration causing the same chest x-ray changes. He has been stable overnight. 10/22/2016. Patient's chest x-ray is pending. Final TB skin test is yet to be read. QuantiFERON has not been reported sputum's are growing a Proteus mirabilis. This is sensitive to Levaquin which the patient's own. Continue his IV penicillin since I suspect this patient aspirates with his frequent inebriation. So far no sputum's are positive for TB. I am reluctant to put the patient on TB medicines, several of which are liver toxic, in the face of his alcoholism unless we have some evidence of active disease. I agree with isolation at the present time. So far his sputum is all been negative for acid- fast bacilli. He does have several infiltrates and I suggest in order to be more definitive in this situation we proceed with fiberoptic bronchoscopy at the bedside in isolation on Friday in order to get the best specimens possible. Physical exam. Vital signs. See below. Highest temp is been 98.6. Psychiatric. Oriented 3. Not very cooperative. Neurologic. Cranial nerves are intact. Long track motor functions intact. No asterixis. Face. Symmetrical Neck. Symmetrical no meningismus Lymphatics. No submandibular cervical supraclavicular adenopathy Chest. Loose large airway congestion. No chest wall tenderness Heart. No gallop Abdomen nondistended nontender. Positive bowel sounds Extremities. Nothing to suggest deep venous thrombophlebitis The remainder the physical exam is negative Plan. 10/20/2016. 1. I am starting this patient on IV penicillin and IV Levaquin. 2. Will collect sputum for Gram stain culture and sensitivity and sputum for TB. QuantiFERON test is pending. TB skin test is pending and this should be of the same significance as the QuantiFERON test. Both will basically indicate a past history of TB exposure and infection some time in the past. 3. Most likely we are dealing with an alcoholic with recurrent aspiration and bacterial infections.. 4. If we decide to put this patient on anti-TB medicines we can consult the [facility] to oversee this and to follow the patient. Course can be done unless they have lost ther [facility] funding. 10/21/2016. 1. See today's note above. 2. Check sputum's when available 3. Continue antibiotics 4. Follow-up chest x-ray 10/22/2016. 1. See today's note above. 2. Continue present antibiotics 3. Fiberoptic bronchoscopy in the morning Exam (Progress Note) - Constitutional Vitals: Period Temp Pulse Resp BP Sys/Zuniga Pulse Ox Last 24 Hr 97 F-98.6 F 44-78 10-20 104-147/64-86 100-100 Results - Labs CBC & BMP: 10/19/16 06:04 10/19/16 06:04 Specialty Discharge - Follow Up or Referrals Follow up with: PCP, Clinic [Other] - 5 Days
[2016-10-22 19:05] LABS: TB Ag minue Nil Result -0.02 IU/mL
[2016-10-23] MEDS: PENICILLIN G POTASSIUM INJ 2,000,000 UNIT in SODIUM CHLORIDE 0.9% 100 ML IV SCH ×3 (03:20→15:25)
[2016-10-23 05:36] LABS: Basophils # 0.1 10*3/uL (0.0-0.2); Basophils % 0.6 % (0.0-0.8); Eosinophils # 0.2 10*3/uL (0.0-0.87); Eosinophils % 1.8 % (0.00-10.9); Hematocrit 35.8 VOL% (42.0-52.0); Hemoglobin 13.1 GM/DL (14.0-18.0); Immature Granulocytes % 0.2 %; Immature Granulocytes Absolute 0.02 #; Lymphocytes # 2.9 10*3/uL (1.4-4.0); Mean Corpuscular HGB Conc 36.6 GM/DL (32-36); Mean Corpuscular Hemoglobin 33 PG (27-34); Mean Corpuscular Volume 89.1 FL (87-102); Mean Platelet Volume 9.1 FL (9.6-12.0); Monocytes # 1.2 10*3/uL (0.11-0.8); NRBC # 0.21 10*3/uL; Neutrophils # 3.8 10*3/uL (1.4-7.4); Neutrophils % 46.4 % (38.7-73.9); Platelet Count 311 T/CUMM (130-400); Red Blood Count 4.02 MC/CUMM (3.8-5.5); Red Cell Distribution Width 16.7 % (9.3-17.3); White Blood Count 8.1 T/CUMM (4-12)
[2016-10-23 05:40] LABS: INR 1.1; PT Patient Result 11.7 SECS; Partial Thromboplastin Time 29.3 SECS (0-40)
[2016-10-23] MEDS ORDERED: BENZONATATE 100 MG CAPSULE PO ONE (07:00)
[2016-10-23] MEDS ORDERED: diphenhydrAMINE 50 MG/1 ML VIAL IM ONE (07:00)
[2016-10-23] MEDS ORDERED: MEPERIDINE 50 MG/1 ML VIAL IM ONE (07:00)
[2016-10-23] MEDS ORDERED: LIDOCAINE 2% VISCOUS 100 ML BOTTLE SWISH/SPIT ONE (07:30)
[2016-10-23] MEDS ORDERED: LIDOCAINE 4% TOP SOLN 50 ML BOTTLE RESP TX ONE (07:30)
[2016-10-23] MEDS ORDERED: LIDOCAINE 1% 20 ML VIAL MISC INJ ONE (07:30)
[2016-10-23] MEDS: LEVOFLOXACIN INJ 500 MG in PREMIX 1 EACH IV SCH (07:55)
--- NOTE | 2016-10-23 08:57 | Event Note ---
In hospital diagnostic fiberoptic bronchoscopy. Lavages from the right upper lung, right lower lung, lingula of the left upper lung. Specimens were sent for Gram stain, bacterial cultures, AFB stains and cultures. The 61-year-old black male alcoholic who has an abnormal chest x-ray with cystic areas in the right upper lung left upper lung and infiltrate in the right lower lung and an infiltrate in the lingula. His studies have been negative for TB but there is a question of tuberculosis based on his chest x- ray appearance. He is at increased risk for tuberculosis because of his alcoholism. For this reason he is evaluated with fiberoptic bronchoscopy. The vocal cords were normal the trachea was normal and the martha was sharp The patient had retained secretions in the right mainstem bronchus the right upper lung and the right lower lung. These areas were lavaged until clear. Patient has scattered areas of minor erosive friable bronchitis and he had mild to moderate collapsibility of his large and small airways. I did not see any endobronchial lesions to suggest cancer. The left mainstem bronchus contained secretions. There were a lot of secretions in the left upper lung especially in the lingula. The lingula was erythematous and edematous and slightly friable. This area was lavaged until clear. There were also secretions in the left lower lung which were removed with lavage and suctioning. There was underlying mild to moderate collapsibility of large and small airways compatible with an element of COPD. Patient tolerated procedure well there were no complications Impression. 1. History of tobacco abuse 2. Sputum is positive for Proteus 3. Thick and thin wall cystic areas in both upper lungs and an infiltrate in the lingula and in the right lower lung suspicious for granulomatous disease. 4. See above 5. Probable underlying COPD Plan. 1. Check bronchoscopy specimens. 2. As a precaution I would keep this patient in isolation until we see his bronchoscopy stains for AFB are negative.
--- NOTE | 2016-10-23 08:58 | Hospitalist Progress Note ---
Assessment and Plan (1) Bacterial pneumonia Status: Acute Assessment and plan: Cavitary lesion is likely 2/2 aspiration. TB work-up thus far is negative for evidence of TB infection. GNR isolated on sputum culture. Awaiting finalization of cx results. Continue with Levo and Pen G for now. 3rd sputum for AFB is pending as well as QTB. Obtain HIV screening today. Health Dept. is aware of this patient. 10/23/16: Remains clinically stable. Proteus isolated on sputum cx. On Levo and Pen G. Will continue both for now and likely d/c Pen G with final cx data. Plans are for patient to undergo bronch today. Will transfer to the floor post- procedure. Current Visit: Yes (2) Alcoholic intoxication Status: Resolved Assessment and plan: Resolved. Patient is AAO x3. Continue to monitor for withdrawals. No signs nor symptoms of such currently. Current Visit: Yes (3) Abnormal screening chest x-ray for tuberculosis Status: Acute Assessment and plan: As per above. Awaiting 3rd sputum for AFB and QTB. Current Visit: Yes Hospitalist: Subjective Interval history: Mr. Carey was initially admitted with alcohol intoxication and noted to have a right apical thick walled cavitary lesion. He was placed in ICU for negative pressure isolation (airborne precautions) to r/o TB. 3/3 Sputum samples for AFB are smear negative. TST with 0mm induration. QTB pending. Patient is resting well this morning. No cough nor shortness of breath. No chest pain. Sitting up in bed eating breakfast without difficulty. Currently on Levoflxacin and Pen G. Sputum culture with Proteus isolated and is susceptible to Levo. Plans for Bronch this morning and transfer to the floor. Exam - Constitutional Vitals: Period Temp Pulse Resp BP Sys/Zuniga Pulse Ox Last 24 Hr 97.1 F-98.0 F 54-86 10-20 106-139/65-76 97-100 General appearance: under weight - Head Head exam: Present: normal inspection, normocephalic, atraumatic - Eye Eye exam: Present: EOMI - Respiratory Respiratory exam: Present: rales - Cardiovascular Cardiovascular exam: Present: regular rate and rhythm - GI/Abdominal GI/Abdominal exam: Present: normal bowel sounds, soft. Absent: distended, tenderness - Neurological Exam Neurological exam: Present: alert, oriented X3 - Psychiatric Psychiatric exam: Present: normal affect, normal mood - Skin Skin exam: Present: normal color, warm Results - Labs CBC & BMP: 10/23/16 05:13 10/19/16 06:04 Quality Measures - Stroke Symptom Onset Unknown: No Specialty Discharge - Follow Up or Referrals Follow up with: PCP, Clinic [Other] - 5 Days
[2016-10-23] MEDS: CLORAZEPATE 3.75 MG TABLET PO SCH ×2 (09:45→15:26)
[2016-10-23] MEDS: PANTOPRAZOLE 40 MG TABLET PO SCH (09:45)
[2016-10-23] MEDS: SODIUM CHLORIDE 0.45% 1,000 ML IV SCH (09:49)
--- NOTE | 2016-10-23 10:26 | Pulmonology Progress Note ---
Pulmonary - PN: Subj Interval history: This is a 61-year-old alcoholic who I saw in pulmonary consultation on 2016. Patient has an abnormal chest x-ray and the request was to rule out pulmonary tuberculosis. My impressions were. 1. Alcoholism 2. Tobacco abuse 3. Septated slightly thick wall cavity at the apex of the right lung. No air- fluid level. Possible cavity associated with infiltrate posterior right lower lung. Infiltrate in the distal lingula. In the face of the patient's alcoholism I suspect that he has had episodes of gastroesophageal reflux and/or vomiting with aspiration. He is a most likely bacterial but I agree with looking for evidence of acid-fast bacilli. 4. Anemia 5. Hypoproteinemia and hypoalbuminemia 10/21/2016. Sputum Gram stain is showing gram-positive cocci and a few gram- negative rods. Patient has less than 25 white blood cells per high-power field. Sputum for TB are pending. TB skin test is been placed and so far is negative. QuantiFERON test is pending. If either 1 of these test are positive and means the patient had a infection for TB sometime in his lifetime. If the tests are negative and probably means she has never had a TB infection but he could have energy secondary to his chronic alcoholism. We will see what his sputum shows. As an alcoholic patient could have multiple episodes of aspiration causing the same chest x-ray changes. He has been stable overnight. 10/22/2016. Patient's chest x-ray is pending. Final TB skin test is yet to be read. QuantiFERON has not been reported sputum's are growing a Proteus mirabilis. This is sensitive to Levaquin which the patient's own. Continue his IV penicillin since I suspect this patient aspirates with his frequent inebriation. So far no sputum's are positive for TB. I am reluctant to put the patient on TB medicines, several of which are liver toxic, in the face of his alcoholism unless we have some evidence of active disease. I agree with isolation at the present time. So far his sputum is all been negative for acid- fast bacilli. He does have several infiltrates and I suggest in order to be more definitive in this situation we proceed with fiberoptic bronchoscopy at the bedside in isolation on Friday in order to get the best specimens possible. 10/23/2016. Today's chest x-ray is stable. This patient's sputum's have all been negative for AFB. TB skin test is negative. QuantiFERON is negative. He has an abnormal chest x-ray and there is a question of whether not he has tuberculosis. He was evaluated with fiberoptic bronchoscopy today. All of the abnormal areas were lavaged until clear and specimens were sent for bacteria and AFB. Patient tolerated procedure well. See report. So far there is no evidence of TB. I am reluctant to put this patient on any antituberculous medicines with his history of noncompliance and his history of alcoholism. If the bronchoscopy specimens are negative I think he can be sent home on appropriate antibiotic for the Proteus mirabilis which is growing from his lungs. Physical exam. Vital signs. See below. Highest temp is been 98.6. Psychiatric. Oriented 3. Not very cooperative. General. No apparent distress Neurologic. Cranial nerves are intact. Long track motor functions intact. No asterixis. Face. Symmetrical Neck. Symmetrical no meningismus Lymphatics. No submandibular cervical supraclavicular adenopathy Chest. Loose large airway congestion. No chest wall tenderness Heart. No gallop Abdomen nondistended nontender. Positive bowel sounds Extremities. Nothing to suggest deep venous thrombophlebitis The remainder the physical exam is negative Plan. 10/20/2016. 1. I am starting this patient on IV penicillin and IV Levaquin. 2. Will collect sputum for Gram stain culture and sensitivity and sputum for TB. QuantiFERON test is pending. TB skin test is pending and this should be of the same significance as the QuantiFERON test. Both will basically indicate a past history of TB exposure and infection some time in the past. 3. Most likely we are dealing with an alcoholic with recurrent aspiration and bacterial infections.. 4. If we decide to put this patient on anti-TB medicines we can consult the [facility] to oversee this and to follow the patient. Course can be done unless they have lost ther government funding. 10/21/2016. 1. See today's note above. 2. Check sputum's when available 3. Continue antibiotics 4. Follow-up chest x-ray 10/22/2016. 1. See today's note above. 2. Continue present antibiotics 3. Fiberoptic bronchoscopy in the morning 10/23/2016. 1. See my note above. 2. See bronchoscopy report Exam (Progress Note) - Constitutional Vitals: Period Temp Pulse Resp BP Sys/Zuniga Pulse Ox Last 24 Hr 97.1 F-98.0 F 54-86 10-20 106-147/65-103 97-100 Results - Labs CBC & BMP: 10/23/16 05:13 10/19/16 06:04 Specialty Discharge - Follow Up or Referrals Follow up with: PCP, Clinic [Other] - 5 Days
[2016-10-23 16:21] VITALS: BP 130/80
--- NOTE | 2016-10-23 16:30 | Discharge Summary ---
Hospital Course - Hospital Course Hospital Course: 61 yo BM admitted with alcohol intoxication and confusion. He had CT Head and cspine without acute changes. Additionally, he was noted to have a right apical thick walled cavitary lesion. He was placed in ICU for negative pressure isolation (airborne precautions) to r/o TB. 3/3 Sputum samples for AFB and one BAL specimen were smear negative. He did undergo an uneventful bronch on the day of discharge. TST with 0mm induration. QTB negative. Routine bacterial cx of the sputum grew Proteus. He was treated with Levofloxacin and Pen G. and has had an uneventful admission. He reports feeling well. He has had no further acute events that require an extended hospital stay. He has no cough nor shortness of breath. No chest pain. He tolerated his diet, and has remained hemodynamically. He is ready for DC and will complete a 14 day course of antibiotic therapy for bacterial pneumonia. He has no desire to pursue alcohol rehab. - Time spent with patient Time with patient DS: Less than 30 minutes Diagnosis - Discharge Diagnosis (1) Bacterial pneumonia Status: Acute (2) Alcoholic intoxication Status: Resolved (3) Abnormal screening chest x-ray for tuberculosis Status: Acute Specialty Discharge - Follow Up or Referrals Follow up with: PCP, Clinic [Other] - 5 Days Discharge Plan - Discharge Medications New Levofloxacin Inj [Levaquin Inj] 500 mg PO Q24H #10 tablet - Follow Up or Referral Follow Up: PCP, Clinic [Other] - 5 Days - Forms/Instructions Exam - Constitutional Vitals: Period Temp Pulse Resp BP Sys/Zuniga Pulse Ox Last 24 Hr 97.1 F-98.0 F 53-85 10-20 120-151/65-103 97-100 Exam: General appearance: under weight - Head Head exam: Present: normal inspection, normocephalic, atraumatic - Eye Eye exam: Present: EOMI - Respiratory Respiratory exam: Present: rales. Course breath sounds - Cardiovascular Cardiovascular exam: Present: regular rate and rhythm - GI/Abdominal GI/Abdominal exam: Present: normal bowel sounds, soft. Absent: distended, tenderness - Neurological Exam Neurological exam: Present: alert, oriented X3 - Psychiatric Psychiatric exam: Present: normal affect, normal mood - Skin Skin exam: Present: normal color, warm Discharge Results Procedures and tests throughout hospitalization: Pending Orders 10/19/16 AFB Culture/Smears Routine 10/20/16 21:10 AFB Culture/Smears Stat 10/21/16 21:35 AFB Culture/Smears 10/23/16 04:00 AFB Culture/Smears 10/23/16 09:20 AFB Culture/Smears Stat Bronchoalveolar Lavage C & GS Stat 10/24/16 04:00 XR chest 2V IN AM Labs on day of discharge: Labs from last 24 hours 10/23/16 10/23/16 10/19/16 05:13 05:13 19:14 WBC 8.1 D RBC 4.02 Hgb 13.1 L Hct 35.8 L MCV 89.1 MCH 33 MCHC 36.6 H RDW 16.7 Plt Count 311 MPV 9.1 L Neut % (Auto) 46.4 Lymph % (Auto) 36.0 [place] % (Auto) 15.0 H Eos % (Auto) 1.8 Baso % (Auto) 0.6 Neut # (Auto) 3.8 Lymph # (Auto) 2.9 [place] # (Auto) 1.2 H Eos # (Auto) 0.2 Baso # (Auto) 0.1 Immature Gran % 0.2 Nucleated RBC % 2.6 Immature Gran # 0.02 Nucleated RBCs # 0.21 INR 1.1 PT Patient/Control Mix 11.7 Circ Anticoag PTT 29.3 TB (QFT) Gold In Tube Negative TB Test (QFT) Nil 0.11 TB Test Mitogen - Nil > 10.00 TB Test Antigen - Nil -0.02 DS: Provider Date of admission: 10/19/16 18:45 Primary care physician: . No PCP Attending physician on admission: Miguel Martinez DO Consults: 10/19/16 18:45 Consult to Physician [CONS] Routine Comment: Cavitary Chest lesion Consulting Provider: Alejo Morgan Discharging clinician: Bela Senior MD
[2016-10-23] MEDS ORDERED: PNEUMOCOCCAL VACCINE (23 VALENT) 0.5 ML VIAL IM ONE (17:09)
--- NOTE | 2016-10-25 14:08 | Physician Query Form ---
CLICK EDIT DOCUMENT TO SELECT QUERY ANSWER --> OK --> SIGN Irene Tejada RN Clinical Elementary [employer] Education Teacher W) [phone] (f) [phone] [email or web address] PROVIDERS: Make your selection(s) from the choices in EACH section by typing an "x" and enter comments in the comment section. Please use your independent medical judgment in providing your response. This request does not imply that any particular answer is desired or expected. CLINICAL INDICATORS: (Providers should not edit this section) Based on documentation of "acute bacterial pneumonia" and "In the face of the patient's alcoholism I suspect that he has had episodes of gastroesophageal reflux and/or vomiting with aspiration. He is a most likely bacterial . I suspect this patient aspirates with his frequent inebriation. Most likely we are dealing with an alcoholic with recurrent aspiration and bacterial infections ". Sputum is positive for Proteus. Pt. treated with IV Levaquin. Community Acquired and Healthcare Acquired are both unspecified terms and require further specificity. Based on the above, could you please clarify further specificity regarding the type of pneumonia you are treating (even if specific organism may not be known) ? ( X) Aspiration pneumonia ( ) Gram negative pneumonia ( ) Gram positive pneumonia ( ) Bacterial pneumonia due to, please specify organism (if known): ( ) Pneumonia with Influenza ( ) Viral pneumonia ( ) Post procedural ( ) HIV associated pneumonia ( ) Radiation Pneumonitis ( ) Pneumonia due to, please specify: ( ) Clinically unable to determine ( ) Other, please specify: COMMENTS: PLEASE ALSO DOCUMENT RESPONSE IN PROGRESS NOTES AND/OR DISCHARGE SUMMARY Use of terms such as suspected, likely, or probable (associated with a specific diagnosis that is being evaluated, monitored, or treated as if it exists) are acceptable and can be restated in the discharge summary if not ruled out. MTDD
== END 2016-10-23 18:20 | disposition home or self-care (01) | DRG 987 ==
LOC: EDUNIT# → EDBD → N.ED 20:55 → N.EDINP 20:55 → SUATTDRO 23:21 → N.5E 10-19 00:06 → SUATTDRO 10-19 18:45 → N.ICU 10-20 00:05
PROVIDERS: ADMIT Internal Medicine; ATTEND Internal Medicine